=== PATIENT | female | born 1945 | race Caucasian/White ===

== ENCOUNTER 2020-06-09 13:43 | Outpatient (CLI) | payer MEDICARE, OTHER, SELFPAY ==
--- NOTE | 2020-06-09 13:57 | XRR_ITS ---
PROCEDURE INFORMATION: Exam: XR Right Hip with Pelvis when Performed Exam date and time: 06/09/2020 1:58 PM Age: 74 years old Clinical indication: Hip pain; Prior surgery; Surgery date: Post-operative (0-2 days); Surgery type: Right hip placement; Patient HX: Pain right hip afer getting up off the stool, felt a pulling. Pain to even put weight on. ; Additional info: S/P right hip replacement TECHNIQUE: Imaging protocol: XR Right hip with pelvis when performed. Views: 1 view. COMPARISON: CT Chest/Abdomen/Pelvis wwo 07/30/2017 2:17 PM FINDINGS: Bones/joints: Metallic arthroplasty is present in the right hip in good position. No acute bony abnormalities seen. 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 Soft tissues: A vena cava filter is in place in good position. XR/XR hip RT 2-3V wo/w pel* [id number] IMPRESSION: 1. No acute findings. 2. A vena cava filter is in good position. 3. Metallic right hip arthroplasty in good position
== END 2020-06-09 13:44 | disposition home or self-care (01) ==
LOC: RAD 13:53
PROVIDERS: PCP Family Medicine; Visit Provider Nurse Practitioner Adult Health
DX: Z96.641 Presence of right artificial hip joint (principal); M25.551 Pain in right hip
CPT/HCPCS: 73502

== ENCOUNTER 2020-09-05 14:00 | Outpatient (CLI) | payer MEDICARE, OTHER, SELFPAY | END 2020-09-05 14:01 | disposition home or self-care (01) | LOC: LAB 06-15 12:10 | PROVIDERS: PCP Family Medicine; Visit Provider Obstetrics & Gynecology | DX: Z86.018 Personal history of other benign neoplasm (principal) | CPT/HCPCS: 80053 ==

== ENCOUNTER 2020-09-18 11:08 | Outpatient (CLI) | payer MEDICARE, OTHER, SELFPAY ==
--- NOTE | 2020-09-18 11:30 | CT_ITS ---
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 100 mL of nonionic contrast administere d intravenously. Compared to prior study 07/30/2017. Lower lung zones are clear. Coronary artery calcifications. Small hiatal hernia. The liver, gallbladd er and spleen are unremarkable. The pancreas is unremarkable. The abdominal aorta is normal in calibe r. An IVC filter is noted. The portal vein and IVC are patent otherwise. There are 2 cysts in the lef t kidney. The largest cyst measures 6.2 cm at greatest diameter and the smaller cyst measures 2.4 cm. These are unchanged since previous study. Normal right kidney. Normal adrenal glands. No lymphadenop athy or free air. Small bowel loops are normal in caliber. Moderate sized ventral hernia noted. The h ernia contains unobstructed colon and fat. No sign of acute appendix. The colon is otherwise unremark able. There was no mass or adenopathy in the pelvis. Intact urinary bladder. Status post hysterectomy . No free air. Right total hip replacement. Moderately advanced DJD of the left hip. No destructive b one lesions. Advanced degenerative changes of the lumbar spine with scoliosis CT/CT abdomen pelvis w con* [id number] IMPRESSION: 1. No mass, lymphadenopathy or acute finding in the abdomen or pelvis. 2. Ventral hernia containing unobstructed colon as well as fat. 3. Left renal cysts. 4. Additional nonacute findings as detailed above.
[2020-09-18] MEDS: iodixanol 320 mg/mL 100mL Btl IV (11:33)
== END 2020-09-18 11:09 | disposition home or self-care (01) ==
LOC: RADWPI 11:12
PROVIDERS: PCP Family Medicine; Visit Provider Obstetrics & Gynecology
DX: D39.0 Neoplasm of uncertain behavior of uterus (principal); K43.9 Ventral hernia without obstruction or gangrene; Q61.02 Congenital multiple renal cysts
CPT/HCPCS: 74177; Q9967

== ENCOUNTER → 2021-12-11 14:55 | Outpatient (BNVA) | payer MEDICARE, SELFPAY | PROVIDERS: PCP Family Medicine; Visit Provider Internal Medicine | DX: I25.10 Atherosclerotic heart disease of native coronary artery without angina pectoris (principal); I10 Essential (primary) hypertension; I27.20 Pulmonary hypertension, unspecified | CPT/HCPCS: 99213 ==

== ENCOUNTER → 2022-09-26 13:55 | Outpatient (BNVA) | payer MEDICARE, SELFPAY | PROVIDERS: PCP Family Medicine; Visit Provider Obstetrics & Gynecology | DX: R10.2 Pelvic and perineal pain (principal) | CPT/HCPCS: 76857 ==

== ENCOUNTER → 2022-11-08 10:27 | Outpatient (BNVA) | payer MEDICARE, SELFPAY | PROVIDERS: PCP Family Medicine; Visit Provider Internal Medicine | DX: I25.10 Atherosclerotic heart disease of native coronary artery without angina pectoris (principal); Z95.1 Presence of aortocoronary bypass graft; E66.9 Obesity, unspecified; Z68.41 Body mass index [BMI] 40.0-44.9, adult; Z98.61 Coronary angioplasty status; Z95.828 Presence of other vascular implants and grafts; I10 Essential (primary) hypertension; Z86.718 Personal history of other venous thrombosis and embolism; I27.20 Pulmonary hypertension, unspecified; I42.9 Cardiomyopathy, unspecified | CPT/HCPCS: 99213 ==

== ENCOUNTER → 2023-08-26 12:04 | Outpatient (BNVA) | payer MEDICARE, SELFPAY | PROVIDERS: PCP Family Medicine; Visit Provider Internal Medicine Cardiovascular Disease | DX: R60.9 Edema, unspecified (principal); R06.02 Shortness of breath; I27.20 Pulmonary hypertension, unspecified; I42.9 Cardiomyopathy, unspecified; I10 Essential (primary) hypertension; Z86.718 Personal history of other venous thrombosis and embolism; E78.5 Hyperlipidemia, unspecified; I25.10 Atherosclerotic heart disease of native coronary artery without angina pectoris; Z95.1 Presence of aortocoronary bypass graft; E66.9 Obesity, unspecified; Z68.41 Body mass index [BMI] 40.0-44.9, adult; Z95.828 Presence of other vascular implants and grafts; Z98.61 Coronary angioplasty status | CPT/HCPCS: 99214 ==

== ENCOUNTER → 2024-02-25 10:48 | Outpatient (BNVA) | payer MEDICARE, SELFPAY | PROVIDERS: PCP Family Medicine; Visit Provider Internal Medicine Cardiovascular Disease | DX: I25.10 Atherosclerotic heart disease of native coronary artery without angina pectoris (principal); Z98.61 Coronary angioplasty status; Z95.828 Presence of other vascular implants and grafts; Z95.1 Presence of aortocoronary bypass graft; E78.5 Hyperlipidemia, unspecified; Z86.718 Personal history of other venous thrombosis and embolism; I10 Essential (primary) hypertension; I42.9 Cardiomyopathy, unspecified; I27.20 Pulmonary hypertension, unspecified; E66.9 Obesity, unspecified; R06.02 Shortness of breath; R60.9 Edema, unspecified; Z68.41 Body mass index [BMI] 40.0-44.9, adult | CPT/HCPCS: 99213 ==

== ENCOUNTER → 2024-08-23 17:07 | Outpatient (BNVA) | payer MEDICARE, SELFPAY | PROVIDERS: PCP Family Medicine; Visit Provider Nurse Practitioner Family | DX: R07.9 Chest pain, unspecified (principal); I42.9 Cardiomyopathy, unspecified; I10 Essential (primary) hypertension; I48.91 Unspecified atrial fibrillation | CPT/HCPCS: 93005; 99213 ==

== ENCOUNTER 2024-08-24 16:32 | Emergency (ER) | payer MEDICARE, SELFPAY ==
--- NOTE | 2024-08-24 16:45 | ECG_ITS ---
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 Measurements Intervals Delton Rate: 69 P: 0 CT: 0 QRS: -44 QRSD: 120 T: 116 QT: 446 QTc: 480 Interpretive Statements ATRIAL FIBRILLATION LEFT AXIS DEVIATION [QRS AXIS < -30] SEPTAL MYOCARDIAL INFARCTION , PROBABLY OLD [40+ ms Q WAVE IN V1/V2] MODERATE T-WAVE ABNORMALITY, CONSIDER LATERAL ISCHEMIA [-0.1+ mV T-WAVE IN I/aVL/V5/V6] Compared to ECG 08/23/2024 17:11:14 Myocardial infarct finding now present Possible ischemia now present Intraventricular conduction delay no longer present T-wave abnormality still present Electronically Signed On 08-24-2024 21:25:01 CHANGE RELEASE MANAGER by Chance Colindres M.D. [email or web address]
--- NOTE | 2024-08-24 17:05 | CTR_ITS ---
PROCEDURE INFORMATION: Exam: CT Abdomen And Pelvis With Contrast Exam date and time: 08/24/2024 6:29 PM Age: 78 years old Clinical indication: Abdominal pain; Epigastric; Prior surgery; Surgery date: 6+ months; Surgery type: Hysterectomy, umbilical repair; Additional info: Abd pain TECHNIQUE: Imaging protocol: Computed tomography of the abdomen and pelvis with contrast. Radiation optimization: All CT scans at this facility use at least one of these dose optimization techniques: automated exposure control; mA and/or kV adjustment per patient size (includes targeted exams where dose is matched to clinical indication); or iterative reconstruction. Contrast material: OMNIPAQUE 350; Contrast volume: 100 ml; Contrast route: INTRAVENOUS (IV); COMPARISON: CT abdomen pelvis w con* [id number] 09/18/2020 11:29 AM RADIATION DOSE METRICS: Total DLP (mGy-cm): 1073.55 FINDINGS: Heart: Cardiomegaly. Coronary arteries: Multivessel atherosclerotic disease which involves the coronary arteries. Diaphragm: Small hiatal hernia. Liver: Normal. No mass. Gallbladder and biliary ducts: There are small noncalcified stones versus minimal sludge along the dependent aspect of the gallbladder. Pancreas: Normal. No ductal dilation. Spleen: Normal. No splenomegaly. Adrenal glands: Normal. No mass. Kidneys and ureters: Bilateral renal cysts have benign features the larger of which measures 6.3 cm in the craniocaudad dimension in the left kidney. Follow-up is not necessary. Stomach and bowel: Unremarkable. No obstruction. No mucosal thickening. Appendix: No evidence of appendicitis. Intraperitoneal space: Unremarkable. No free air. No significant fluid collection. Vasculature: There is an IVC filter in place. Lymph nodes: Unremarkable. No enlarged lymph nodes. Urinary bladder: Bladder is partially obscured by artifact from the right total hip replacement. Reproductive: The uterus is not visualized, consistent with hysterectomy. Bones/joints: Thoracolumbar scoliotic curvature. There are severe degenerative changes in the visualized spine. Multilevel lower thoracic and lumbar broad-based disc osteophyte complexes contribute to canal and bilateral neural foramina narrowing. Status post right total hip replacement. There are severe degenerative changes across the left hip joint. Degenerative changes extend across the pubic symphysis and sacroiliac joints. Soft tissues: Midline ventral abdominal hernia contains a short segment of the transverse colon with mild associated mucosal thickening and subtle mesenteric stranding. CT/CT abdomen pelvis w con* [id number] IMPRESSION: 1. Midline ventral abdominal hernia contains a short segment of the transverse colon with mild associated mucosal thickening and subtle mesenteric stranding. Strangulation/ischemia cannot be excluded. 2. Cardiomegaly. 3. Multivessel atherosclerotic disease which involves the coronary arteries. COMMENTS: For patients with an IVC filter, recommend assessment for a management plan for the patient's IVC filter. If there is no established management plan, recommend referral to an interventional clinician on a nonemergent basis for evaluation.
[2024-08-24] MEDS: ondansetron 2 mg/ML SDV 2 mL 4 MG IVP (17:13)
[2024-08-24 17:15] VITALS: RESP 18; O2SAT 92
[2024-08-24] MEDS: morphine 4 mg/mL SDV 1 mL IVP (17:15)
[2024-08-24 17:18] VITALS: BP 199/93; PULSE 62; RESP 16; O2SAT 93
--- NOTE | 2024-08-24 17:21 | W.ED.ABDPA2 ---
HPI - Abdominal Pain General: Chief Complaint: Abdominal Pain Stated Complaint: abd pain Time Seen by Provider: 08/24/24 16:48 Source: patient Mode of arrival: ambulatory Limitations: no limitations History of Present Illness: 78-year-old female who states that she started having epigastric abdominal pain after eating this morning. States been a sharp pain had some nausea denies any vomiting states pain is currently 6 out of 10 she denies any radiation she denies any fever denies any chest pain denies any shortness of breath. Associated Symptoms: Reports nausea; Denies chills, diarrhea, dysuria, fever(s) and vomiting Related Data Home Medications Medication Instructions Recorded Confirmed aspirin 81 mg tablet,delayed 81 mg PO DAILY 02/16/20 08/23/24 release (Aspir-) atorvastatin 40 mg tablet (Lipitor) 40 mg PO DAILY 02/16/20 08/23/24 cholecalciferol (vitamin D3) 50 50 mcg PO DAILY 02/16/20 08/23/24 mcg (2,000 unit) capsule clopidogrel 75 mg tablet 75 mg PO DAILY 02/16/20 08/23/24 cranberry extract 200 mg capsule 200 mg PO DAILY 02/16/20 08/23/24 furosemide 20 mg tablet 40 mg PO DAILY 02/16/20 08/23/24 irbesartan 150 mg tablet 150 mg PO DAILY 02/16/20 08/23/24 levothyroxine 50 mcg tablet 50 mcg PO DAILY 02/16/20 08/23/24 magnesium PO DAILY 02/16/20 08/23/24 pantoprazole 40 mg tablet,delayed 40 mg PO DAILY 02/16/20 08/23/24 release (Protonix) potassium 99 mg tablet mg PO DAILY 02/16/20 08/23/24 quinine sulfate 324 mg capsule 324 mg PO DAILY 02/16/20 08/23/24 carvedilol 3.125 mg tablet 3.125 mg PO BID 06/26/20 08/23/24 lisinopril 2.5 mg tablet 2.5 mg PO DAILY 06/26/20 08/23/24 gabapentin 100 mg capsule 100 mg PO BID 08/26/23 08/23/24 Previous Rx's Medication Instructions Recorded nitroglycerin 0.4 mg sublingual 0.4 mg sublingual Q5M PRN chest 10/19/20 tablet (Nitrostat) pain #25 tabs ondansetron 4 mg disintegrating 4 mg PO Q6H PRN nausea and 08/24/24 tablet vomiting #14 tabs pantoprazole 40 mg tablet,delayed 40 mg PO DAILY #60 tabs 08/24/24 release (Protonix) Allergies Allergy/AdvReac Type Severity Reaction Status Date / Time clindamycin Allergy Unknown Unknown Verified 08/24/24 16:43 Review of Systems Const: Denies: fever(s), chills, body aches or change in appetite ENMT: Denies: throat pain or dental pain Card: Denies: chest pain Resp: Denies: dyspnea GI: Reports: abdominal pain and nausea; Denies: vomiting or diarrhea : Denies: dysuria Musc: Denies: neck pain or back pain Skin/Breast: Denies: rash Neuro: Denies: headache(s) PFSH ED PFSH: Medical History Chronic edema Chronic shortness of breath Pulmonary HTN Cardiomyopathy HTN (hypertension) Personal history of DVT (deep vein thrombosis) Dyslipidemia ASHD (arteriosclerotic heart disease) Obesity Surgical History S/P CABG (coronary artery bypass graft) Hx of superior vena cava filter placement S/P PTCA (percutaneous transluminal coronary angioplasty) Family History Mother Hypertension CAD (coronary artery disease) Hyperlipidemia Family/Other Diabetes nephew Denies family history of Colon cancer Ovarian cancer Clotting disorder Breast cancer Anesthesia complication Bleeding disorder Uterine cancer Thyroid disease Stroke Social History Smoking and tobacco/nicotine status: never used tobacco/nicotine Alcohol intake: never Substance/Drug Use: never Physical Exam Const: COMMON NORMALS: no acute distress, patient oriented x3 and healthy appearing HENMT: COMMON NORMALS: normocephalic and atraumatic HEAD & SCALP: normocephalic and atraumatic Eye: COMMON NORMALS: conjunctivae normal CONJUNCTIVA: Yes conjunctivae normal Neck/C-Spine: COMMON NORMALS: full ROM and supple Chest: COMMONS NORMALS: normal inspection of the chest Resp: COMMON NORMALS: normal respiratory effort, No retractions, No use of accessory muscles and clear to auscultation bilaterally AUSCULTATION: clear to auscultation bilaterally Cardio: COMMON NORMALS: regular rate, regular rhythm and No murmurs present (Cardio) RATE: regular rate RHYTHM: regular rhythm GI: COMMON NORMALS: Normal to inspection, nondistended, normoactive bowel sounds present, Soft to palpation and no masses PALPATION: Yes Soft to palpation OTHER: epigastric tenderness Extremity: COMMON NORMALS: normal to inspection and full ROM Neuro: COMMON NORMALS: patient oriented x3, moves all extremities and no focal motor deficits Psych: COMMON NORMALS: mental status grossly normal, Normal thought process present and cooperative THOUGHT PROCESS: Normal thought process present Skin: COMMON NORMALS: no rashes or lesions noted and no wounds GENERAL SKIN EXAM: no rashes or lesions noted Course Vital Signs: Vital signs: Vital Signs Pulse Rate 52 L 08/24/24 17:30 Respiratory Rate 16 08/24/24 17:18 Blood Pressure 166/76 08/24/24 17:30 Pulse Oximetry 91 08/24/24 17:30 Oxygen Delivery Me thod Room Air 08/24/24 17:30 MDM - Abdominal Pain Medical Decision Making Patient presents here with abdominal pain she feels much improved currently her pain is resolved her pain is epigastric in nature no chest pain CT showed no acute findings does show her ventral abdominal hernia that exam the hernia is easily reduced no signs of being strangulated no pain over the hernia blood works normal as well will start on Protonix Zofran get her follow-up with surgery she is return if worsening she understands agrees to plan Medical Records I reviewed the patient's medical records. Lab Data I reviewed the patient's lab results. 08/24/24 17:08 08/24/24 17:08 Labs/Radiology: Radiology Impressions Abdomen/Pelvis CT 08/24/24 17:05 IMPRESSION: 1. Midline ventral abdominal hernia contains a short segment of the transverse colon with mild associated mucosal thickening and subtle mesenteric stranding. Strangulation/ischemia cannot be excluded. 2. Cardiomegaly. 3. Multivessel atherosclerotic disease which involves the coronary arteries. COMMENTS: For patients with an IVC filter, recommend assessment for a management plan for the patient's IVC filter. If there is no established management plan, recommend referral to an interventional clinician on a nonemergent basis for evaluation. Laboratory Results WBC 7.54 10^3/uL (3.29-11.43) 08/24/24 17:08 RBC 4.35 10^6/uL (3.85-5.65) 08/24/24 17:08 Hgb 12.70 g/dL (11.27-16.99) 08/24/24 17:08 Hct 39.2 % (36-47) 08/24/24 17:08 MCV 90.1 fl (85-98) 08/24/24 17:08 MCH 29.2 pg (27-33) 08/24/24 17:08 MCHC 32.4 g/dL (30-55) 08/24/24 17:08 RDW 14.5 % (12.1-15.1) 08/24/24 17:08 Plt Count 211 10^3/cmm (157-399) 08/24/24 17:08 MPV 12.0 fL (7.4-10.4) H 08/24/24 17:08 Neut % (Auto) 81.2 % 08/24/24 17:08 Lymph % (Auto) 10.9 % 08/24/24 17:08 [place] % (Auto) 4.6 % 08/24/24 17:08 Eos % (Auto) 2.8 % 08/24/24 17:08 Baso % (Auto) 0.4 % 08/24/24 17:08 Neut # (Auto) 6.12 10^3/uL (1.8-7.7) 08/24/24 17:08 Lymph # (Auto) 0.8 10^3/uL (0.8-4.8) 08/24/24 17:08 [place] # (Auto) 0.4 10^3/uL (0.2-0.9) 08/24/24 17:08 Eos # (Auto) 0.2 10^3/uL (0.0-0.8) 08/24/24 17:08 Baso # (Auto) 0.0 10^3/uL (0.0-0.1) 08/24/24 17:08 Nucleated RBC % (auto) 0 % 08/24/24 17:08 Nucleated RBCs # 0.0 /100WBC 08/24/24 17:08 Sodium 139 mmol/L (136-145) 08/24/24 17:08 Potassium 4.4 mmol/L (3.5-5.1) 08/24/24 17:08 Chloride 100 mmol/L (98-107) 08/24/24 17:08 Carbon Dioxide 27 mmol/L (22-29) 08/24/24 17:08 Anion Gap 16.4 (5-19) 08/24/24 17:08 BUN 16 mg/dL (8-23) 08/24/24 17:08 Creatinine 1.1 mg/dL (0.5-0.9) H 08/24/24 17:08 GFR Calculation Not Reportable 08/24/24 17:08 Glucose 102 mg/dL (65-115) 08/24/24 17:08 Calculated Osmolality 289 mOsm/kg (285-295) 08/24/24 17:08 Calcium 10.1 mg/dL (8.5-10.5) 08/24/24 17:08 Total Bilirubin 1.2 mg/dL (0.15-1.2) 08/24/24 17:08 AST 32 U/L (0-32) 08/24/24 17:08 ALT 21 U/L (0-33) 08/24/24 17:08 Alkaline Phosphatase 105 U/L (35-105) 08/24/24 17:08 Total Protein 7.1 g/dL (6.6-8.7) 08/24/24 17:08 Albumin 4.3 g/dL (3.5-5.2) 08/24/24 17:08 Globulin 2.8 g/dL (1.3-4.6) 08/24/24 17:08 Lipase 24 U/L (13-60) 08/24/24 17:08 All radiology interpretation(s) finalized by discharge EKG Data EKG 1: I personally reviewed and interpreted this EKG as follows: EKG interpretation date: 08/24/24 EKG interpretation time: 16:45 Interpretation: afib hr [address] elevation qrs 120 qtc 466 Discharge Plan Discharge Patient Disposition: Home Clinical Impression: Abdominal pain Condition: Stable Prescriptions: New pantoprazole [Protonix] 40 mg tablet,delayed release (DR/EC) 40 mg PO DAILY Qty: 60 0RF ondansetron 4 mg tablet,disintegrating 4 mg PO Q6H PRN (Reason: nausea and vomiting) Qty: 14 0RF No Action clopidogrel 75 mg tablet 75 mg PO DAILY pantoprazole [Protonix] 40 mg tablet,delayed release (DR/EC) 40 mg PO DAILY aspirin [Aspir-81] 81 mg tablet,delayed release (DR/EC) 81 mg PO DAILY quinine sulfate 324 mg capsule 324 mg PO DAILY magnesium PO DAILY cholecalciferol (vitamin D3) 50 mcg (2,000 unit) capsule 50 mcg PO DAILY cranberry extract 200 mg capsule 200 mg PO DAILY Rx Instructions: administer with a meal potassium 99 mg tablet PO DAILY irbesartan 150 mg tablet 150 mg PO DAILY furosemide 20 mg tablet 40 mg PO DAILY atorvastatin [Lipitor] 40 mg tablet 40 mg PO DAILY levothyroxine 50 mcg tablet 50 mcg PO DAILY gabapentin 100 mg capsule 100 mg PO BID Rx Instructions: 1 tab am 2 tabs pm nitroglycerin [Nitrostat] 0.4 mg tablet, sublingual 0.4 mg SUBLINGUAL Q5M PRN (Reason: chest pain) Qty: 25 3RF Rx Instructions: do not exceed 3 doses per episode lisinopril 2.5 mg tablet 2.5 mg PO DAILY carvedilol 3.125 mg tablet 3.125 mg PO BID Rx Instructions: must administer with a meal/food Discharge Orders: Discharge ED (Routine); Ordered 08/24/24 Ordered By: Robina Hargrove Referrals: Manuel Greenwood DO [Physician] - 4-7 days Tiera Maldonado MD [Primary Care Provider] - Discharge Diet: Advance as tolerated Discharge Activity: Resume usual activity Patient Instructions: Abdominal Pain (ED) Coding Level of Care Code ED Cutter Brake Lining for Erika Sheriff
[2024-08-24 17:30] VITALS: BP 166/76; PULSE 52; O2SAT 91
[2024-08-24 17:41] LABS: Basophils % 0.4 %; Eosinophils # 0.2 10^3/uL (0.0-0.8); Eosinophils % 2.8 %; Hematocrit 39.2 % (36-47); Lymphocytes # 0.8 10^3/uL (0.8-4.8); Lymphocytes % 10.9 %; Mean Corpuscular HGB Conc 32.4 g/dL (30-55); Mean Corpuscular Hemoglobin 29.2 pg (27-33); Mean Corpuscular Volume 90.1 fl (85-98); Monocytes # 0.4 10^3/uL (0.2-0.9); Monocytes % 4.6 %; Neutrophils # 6.12 10^3/uL (1.8-7.7); Neutrophils % 81.2 %; Nucleated Red Blood Cells % 0 %; Platelet Count 211 10^3/cmm (157-399); Red Blood Count 4.35 10^6/uL (3.85-5.65); Red Cell Distribution Width 14.5 % (12.1-15.1); White Blood Count 7.54 10^3/uL (3.29-11.43)
[2024-08-24 18:02] LABS: Alanine Aminotransferase 21 U/L (0-33); Albumin Level 4.3 g/dL (3.5-5.2); Alkaline Phosphatase 105 U/L (35-105); Anion Gap 16.4 (5-19); Aspartate Amino Transferase 32 U/L (0-32); Blood Urea Nitrogen 16 mg/dL (8-23); Calcium 10.1 mg/dL (8.5-10.5); Carbon Dioxide 27 mmol/L (22-29); Chloride 100 mmol/L (98-107); Creatinine Clr Calc Pharmacy 55.6738; Globulin 2.8 g/dL (1.3-4.6); Glucose 102 mg/dL (65-115); Lipase 24 U/L (13-60); Osmolality Calculated 289 mOsm/kg (285-295); Potassium 4.4 mmol/L (3.5-5.1); Sodium 139 mmol/L (136-145); Total Bilirubin 1.2 mg/dL (0.15-1.2); Total Protein 7.1 g/dL (6.6-8.7)
[2024-08-24] MEDS: iohexol 350 mg/mL 500 mL Btl (per mL) IV (18:34)
[2024-08-24 20:02] VITALS: BP 162/95; PULSE 51; O2SAT 95
--- NOTE | 2024-08-27 01:13 | DCPLANNER ---
Message sent to General surgery for follow up
== END 2024-08-24 20:04 | disposition home or self-care (01) ==
PROVIDERS: Emergency Provider Emergency Medicine; PCP Family Medicine
DX: R10.13 Epigastric pain (principal); K43.9 Ventral hernia without obstruction or gangrene
CPT/HCPCS: 74177; 80053; 83690; 85025; 93005; 96374; 96375; 99285; J2270; J2405

== ENCOUNTER 2024-09-17 11:19 | Outpatient (CLI) | payer MEDICARE, SELFPAY ==
--- NOTE | 2024-09-17 11:45 | USCV_ITS ---
Barbara Mak Age: 78 Gender: F : 1945 Exam Date: 09/17/2024 11:55 Ordering Phys: Sophia Ferreira NP Technologist: CT [place] [facility] [place]: BP: 164 / 80 HR: 66 Rhythm: Sinus Technical Quality: Adequate MEASUREMENTS (Male / Female) Normal Values 2D ECHO LVOT Diameter 2.2 cm LV Ejection Fraction MOD 4C 39.9 % LV Ejection Fraction MOD 2C 44.8 % LV Ejection Fraction 2C AL 47.6 % LA Diameter 5.1 cm RA Systolic Volume 4C AL 118.4 ml RA Systolic Volume 4C MOD 121.5 ml LA Sys Volume AL 119.2 cm cubed LA Sys Volume Index AL 48.6 cm cubed/m squared Aorta at Sinotubular Diameter 2.4 cm IVC Diameter 2.9 cm M-MODE LA Ao Ratio MM 1.7 AV Cusp Separation MM 1.6 cm DOPPLER AV Peak Velocity 191.0 cm/s LVOT Peak Velocity 66.0 cm/s AV Area Cont Eq vti 1.1 cm squared AV Area Cont Eq pk 1.3 cm squared MV Peak Velocity 100.0 cm/s MV Area PHT 4.4 cm squared Mitral E to A Ratio 2.5 TR Peak Velocity 306.0 cm/s TR Peak Gradient 37.5 mmHg TR Mean Velocity 230.0 cm/s TR Mean Gradient 23.3 mmHg TR Velocity Time Integral 113.7 cm TV Peak E Velocity 78.0 cm/s PV Peak Velocity 104.0 cm/s FINDINGS Left Ventricle Left ventricle is normal in size. LV systolic function is moderately reduced with EF of 35 to 40%. Moderate global hypokinesis. Right Ventricle Moderate hypokinesis. Right Atrium Dilated Left Atrium Dilated Mitral Valve Mild mitral annular calcification. Mild to moderate mitral regurgitation. Aortic Valve Aortic valve is thickened. Mild aortic regurgitation. No significant stenosis. Tricuspid Valve Mild tricuspid regurgitation. RVSP is 35 to 40 mmHg. This is consistent with mild pulmonary hypertension. Pulmonic Valve Trace pulmonic regurgitation. Pericardium Normal Aorta Normal in size IVC Not well visualized. CONCLUSIONS LV systolic function is moderately reduced with EF of 35-40% Moderate RV hypokinesis. Biatrial dilation Mild to moderate mitral regurgitation Mild aortic regurgitation Mild tricuspid regurgitation Mild pulmonary hypertension Trace pulmonic regurgitation Accuarte comparison with prior echocardiogram not possible as that was very limited quality study however it was mentioned that patient had mild LV dysfunction on echo in 2017. Chance Colindres MD (Electronically Signed) Final Date: 24 September 2024 15:58 S
== END 2024-09-17 11:20 | disposition home or self-care (01) ==
LOC: RAD 11:20
PROVIDERS: PCP Family Medicine; Visit Provider Nurse Practitioner Family
DX: I42.9 Cardiomyopathy, unspecified (principal); I34.0 Nonrheumatic mitral (valve) insufficiency; I35.8 Other nonrheumatic aortic valve disorders; I51.89 Other ill-defined heart diseases; I51.7 Cardiomegaly
CPT/HCPCS: 93306

== ENCOUNTER 2024-10-21 09:17 | Outpatient (CLI) | payer MEDICARE, SELFPAY ==
--- NOTE | 2024-10-21 | ECG_ITS ---
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 Interpretive Statements LEXISCAN SESTAMIBI STRESS TEST Procedure: At the baseline, the blood pressure was 161/84 mmHg with a heart rate of 67 bpm. The electrocardiogram showed atrial fibrillation, normal axis with normal ST and T's. The Lexiscan was infused over a period of 20 seconds. A total of 0.4 mg of Lexiscan was infused. The stress phase was continued for a total of 5 minutes. Heart rate was at the end of stress phase was 64 bpm and a blood pressure of 130/63 mmHg. The EKG at the peak infusion revealed normal sinus rhythm with no significant ST-T wave changes. Sestamibi was injected 20 seconds after the Lexiscan infusion. Blood pressure at the end of recovery phase was 152/61 mmHg with a heart rate of 60 bpm. Conclusion: 1. Normal EKG response to Lexiscan infusion 2. No Lexiscan induced chest pain or cardiac arrhythmia. 3. Normal blood pressure and heart rate response. 4. Sestamibi/sestamibi perfusion scan pending; see separate report. Electronically Signed On 10-24-2024 10:30:50 VIDEO CLERK by Chance Colindres M.D. [email or web address]
[2024-10-21 09:29] VITALS: BMI 41.3
--- NOTE | 2024-10-21 09:30 | NMCV_ITS ---
NM daniel perf SPECT r/s* [id number] Barbara Mak Age: 78 Gender: F : 1945 Exam Date: 10/21/2024 09:30 Ordering Phys: Sophia Ferreira NP Technologist: FELIPE Perkins Exam [facility] Indications: cp STRESS TEST Please see separate stress test report in [facility] for full findings IMAGE PROTOCOL Rest/Stress 1 Day Radiopharmaceutical Dose (mCi) Administration Site Administered by Rest: Tc-99m 11 IV FELIPE Perkins Sestamibi Stress:Tc-99m 33 IV FELIPE Knutson Sestamibi Rest: 21-Oct-2024 60 Discovery 630 Stress: 21-Oct-2024 30 Discovery 630 0.4mg Lexiscan. SPECT RESULTS Technical Quality: Good Raw Data Analysis: Normal Image Corrections: No attenuation or motion correction applied Summed Stress Score: 10 Summed Rest Score: 6 Summed Difference Score: 4 PERFUSION FINDINGS Medium sized area of fixed perfusion defect noted in the distal anteroseptal, distal apical inferior septal and distal lateral wall suggestive of old myocardial infarction versus scarring. FUNCTIONAL RESULTS (calculated via Gated SPECT) Stress Image LV EF (%): 33 Stress EDV (mL):241 TID: 1.14 Stress ESV (mL):161 FUNCTIONAL FINDINGS: There appeared to be global severe hypokinesis with left ventricular ejection fraction around 33%. There is distal lateral anterior septal and inferior wall akinesis IMPRESSIONS Medium size area for myocardial infarction versus scarring noted in the distal anterior, septal, inferior and lateral wall suggestive of old myocardial infarction versus scarring. The study is negative for significant marcela-infarct ischemia. EKG segment will be documented separately. Fidelia Spencer MD (Electronically Signed) Final Date: 21 October 2024 14:54 S
[2024-10-21] MEDS: regadenoson 0.4 Mg/5 ml Syringe IVP (10:58)
[2024-10-21 11:15] VITALS: BP 152/61; PULSE 61
== END 2024-10-21 09:18 | disposition home or self-care (01) ==
PROVIDERS: PCP Family Medicine; Visit Provider Nurse Practitioner Family
DX: R07.9 Chest pain, unspecified (principal); R93.1 Abnormal findings on diagnostic imaging of heart and coronary circulation
CPT/HCPCS: 36415; 78452; 93017; 96374; A9500; J2785

== ENCOUNTER → 2025-02-28 14:13 | Outpatient (BNVA) | payer MEDICARE, SELFPAY | PROVIDERS: PCP Family Medicine; Visit Provider Internal Medicine Cardiovascular Disease | DX: I48.91 Unspecified atrial fibrillation (principal); Z79.02 Long term (current) use of antithrombotics/antiplatelets; Z79.82 Long term (current) use of aspirin; I13.0 Hypertensive heart and chronic kidney disease with heart failure and stage 1 through stage 4 chronic kidney disease, or unspecified chronic kidney disease; N18.9 Chronic kidney disease, unspecified; I50.9 Heart failure, unspecified; E78.5 Hyperlipidemia, unspecified; Z98.61 Coronary angioplasty status; Z95.1 Presence of aortocoronary bypass graft; Z86.718 Personal history of other venous thrombosis and embolism | CPT/HCPCS: 99214 ==

== ENCOUNTER → 2025-03-24 12:59 | Outpatient (BNVA) | payer MEDICARE, SELFPAY | PROVIDERS: PCP Family Medicine; Visit Provider Obstetrics & Gynecology | DX: Z90.710 Acquired absence of both cervix and uterus (principal); Z85.9 Personal history of malignant neoplasm, unspecified | CPT/HCPCS: 76857 ==

== ENCOUNTER → 2025-09-02 11:24 | Outpatient (BNVA) | payer MEDICARE, SELFPAY | PROVIDERS: PCP Nurse Practitioner Family; Visit Provider Internal Medicine Cardiovascular Disease | DX: I11.0 Hypertensive heart disease with heart failure (principal); I50.20 Unspecified systolic (congestive) heart failure; I48.91 Unspecified atrial fibrillation | CPT/HCPCS: 99214 ==